=== PATIENT | female | born 1990 | race Caucasian/White ===

== ENCOUNTER 2017-05-14 07:02 | Emergency (ER) | payer SELFPAY ==
[2017-05-14 07:09] VITALS: TEMP 98.2; BMI 29.2
--- NOTE | 2017-05-14 07:45 | PDOC ---
History of Present Illness - General Chief Complaint: Pain Stated Complaint: PAIN IN UTERUS Time Seen by Provider: 05/14/17 07:34 History Source: Patient Exam Limitations: No Limitations - History of Present Illness Initial Comments: 05/14/17 08:10 CC: Acute onset of abdominal pain Patient is a 26 y.o. female with a PMH of Asthma who presents this [facility] c/o acute onset of abdominal pain. Patient states she noticed the pain yesterday evening around 10 p.m. Patient states the pain is cramping, intermittent ranging from 5/10-10/10. Patient denies any associated vomiting or fevers but does note nausea. Patient further denies any , dysuria, increased frequency/urgency. 05/14/17 09:00 Timing/Duration: 4-6 hours Severity: moderate Past History - Past Medical History Allergies/Adverse Reactions: Allergies Allergy/AdvReac Type Severity Reaction Status Date / Time No Known Allergies Allergy Verified 05/14/17 07:09 Home Medications: Ambulatory Orders NK [No Known Home Medication] 05/14/17 Asthma: Yes Suicide Attempt (Hx): No - Immunization History Immunization Up to Date: Yes - Psycho/Social/Smoking Cessation Hx Anxiety: No Suicidal Ideation: No Smoking Status: No Smoking History: Never smoked Have you smoked in the past 12 months: No Number of Cigarettes Smoked Daily: 0 Information on smoking cessation initiated: No Hx Alcohol Use: No Drug/Substance Use Hx: No Substance Use Type: None Review of Systems - Review of Systems Constitutional: No: Diaphoresis, Fever, Malaise, Night Sweats, Weakness HEENTM: No: Blurred Vision, Tinnitus, Hearing Loss, Throat Pain Respiratory: No: Cough, Orthopnea, Wheezing, Hemoptysis Cardiac (ROS): No: Chest Pain, Edema, Lightheadedness, Palpitations ABD/GI: Yes: Nausea, Abdominal cramping (Pain scale ranges from 5/10-10/10). No : Constipated, Diarrhea, Vomiting : No: Burning, Dysuria, Hematuria, Urgency Musculoskeletal: No: Back Pain, Joint Pain, Joint Swelling, Joint Stiffness Psychiatric: No: Anxiety, Depression All Other Systems: Reviewed and Negative *Physical Exam - Vital Signs Last Vital Signs Temp Pulse Resp BP Pulse Ox 98.2 F 89 18 128/85 99 05/14/17 07:07 05/14/17 07:07 05/14/17 07:07 05/14/17 07:07 05/14/17 07:07 - Physical Exam General Appearance: Yes: Nourished, Appropriately Dressed HEENT: positive: EOMI, TMs Normal Neck: positive: Trachea midline, Supple Respiratory/Chest: positive: Lungs Clear, Normal Breath Sounds Cardiovascular: positive: Regular Rhythm, Regular Rate, S1, S2 Gastrointestinal/Abdominal: positive: Normal Bowel Sounds, Soft, Other ((-) Suprapubic tenderness) Musculoskeletal: positive: Normal Inspection, Other ((-) CVA tenderness) ED Treatment Course - LABORATORY CBC & Chemistry Diagram: 05/14/17 08:09 05/14/17 08:09 Medical Decision Making - Medical Decision Making 05/14/17 09:00 Patient is a 26 y.o. female who presents c/o acute onset of cramping, intermittently 5/10-10/10 in severity RLQ abdominal pain without fever, dysuria or vomiting. Differential includes ovarian torsion vs. appendicitis vs. nephrolithiasis. Urine is negative and UA shows no hematuria, nitrite negative. CT Scan of Pelvis showed showed R ovarian cyst and U/S confirmed blood flow with no torsion. Patient was counseled on the importance of returning to the ED should she experience severe RLQ pain or systemic signs such as fever for evaluation of possible ovarian torsion. *DC/Admit/Observation/Transfer Diagnosis at time of Disposition: Ovarian cyst - Discharge Dispostion Disposition: HOME Admit: No - Patient Instructions Printed Discharge Instructions: DI for Ovarian Cyst - Post Discharge Activity Work/School Note: Back to Work
[2017-05-14 07:55] LABS: URINE APPEARANCE CLEAR; URINE BILIRUBIN NEGATIVE (NEGATIVE); URINE BLOOD NEGATIVE (NEGATIVE); URINE COLOR LTYELLOW; URINE GLUCOSE (UA) NEGATIVE (NEGATIVE); URINE KETONE NEGATIVE (NEGATIVE); URINE LEUK ESTERASE NEGATIVE (NEGATIVE); URINE NITRITE NEGATIVE (NEGATIVE); URINE PROTEIN NEGATIVE (NEGATIVE); URINE UROBILINOGEN NEGATIVE mg/dL (0.2-1.0)
[2017-05-14 08:37] LABS: MCH 28.6 pg (25.7-33.7); MEAN CELL VOLUME 86.8 fl (80-96); MEAN PLT VOLUME 8.2 fl (7.5-11.1); PLATELET COUNT 252 K/MM3 (134-434); RDW 14.9 % (11.6-15.6); WHITE BLOOD COUNT 6.2 K/mm3 (4.0-10.0)
[2017-05-14 09:00] LABS: ANION GAP 8 (8-16); CALCIUM 8.5 mg/dL (8.5-10.1); CO2 25 mmol/L (21-32); CREATININE 0.6 mg/dL (0.55-1.02); GLUCOSE,RANDOM 88 mg/dL (74-106)
--- NOTE | 2017-05-14 12:02 | PDOC ---
Attending Attestation - Resident Resident Name: Prem Weirica - ED Attending Attestation I have performed the following: I have examined & evaluated the patient, The case was reviewed & discussed with the resident, I agree w/resident's findings & plan, Exceptions are as noted - HPI HPI: 05/14/17 11:59 26 y.o. F h/o Asthma p/w acute onset abdominal pain that began at 10 pm Described as cramping, intermittent ranging from 5/10-10/10. No nausea or vomiting - Physicial Exam PE: 05/14/17 12:01 Lower abdominal tenderness No involuntary guarding or rebound - Medical Decision Making 05/14/17 12:01 Will do labs Will plan to do transvaginal US Will re assess 05/15/17 09:16 Laboratory Tests 05/14/17 07:34 Urine HCG, Qual Negative U/S and CT demonstrate involuting right ovarian cyst Will discharge to home Follow up with keno writer/runner and pmd
[2017-05-14 13:15] VITALS: BP 125/76; PULSE 16
== END 2017-05-14 13:08 | disposition home or self-care (01) ==
LOC: JER 07:02
DX: N83.201 Unspecified ovarian cyst, right side (principal)
CPT/HCPCS: 36415; 74177-TC; 76830-TC; 76856-TC; 80048; 81003; 84703; 85027; 99281-25

== ENCOUNTER 2018-05-13 22:22 | Emergency (ER) | payer BC ==
[2018-05-13 22:38] VITALS: BP 129/67; PULSE 82; TEMP 98.9; BMI 29.2
--- NOTE | 2018-05-13 23:02 | PDOC ---
History of Present Illness - General Chief Complaint: Hematuria Stated Complaint: POSSIBLE UTI Time Seen by Provider: 05/13/18 23:02 - History of Present Illness Initial Comments: 27 year old previously healthy female presenting with urinary burning and minor spotting since this AM. States that she has burning at the beginning of every urination and occasionally noticed small amounts of blood on the toilet paper. Denies any sexual trauma, unusually rough intercourse, etc. Denies fevers, chills, nausea, vomiting, diarrhea, back pain, or other symptoms. 05/14/18 00:28 Past History - Past Medical History Allergies/Adverse Reactions: Allergies Allergy/AdvReac Type Severity Reaction Status Date / Time No Known Allergies Allergy Verified 05/13/18 22:38 Home Medications: Ambulatory Orders Acetaminophen [Tylenol] 650 mg PO PRN 05/14/18 Cephalexin Monohydrate [Keflex -] 500 mg PO BID 7 Days #14 capsule 05/14/18 Asthma: Yes COPD: No - Reproductive History (#): 0 - Immunization History Immunization Up to Date: Yes - Suicide/Smoking/Psychosocial Hx Smoking Status: No Smoking History: Never smoked Have you smoked in the past 12 months: No Number of Cigarettes Smoked Daily: 0 Information on smoking cessation initiated: No Hx Alcohol Use: No Drug/Substance Use Hx: No Substance Use Type: None Review of Systems - Review of Systems Constitutional: No: Chills, Diaphoresis HEENTM: No: Blurred Vision, Tearing, Recent change in vision, Double Vision Respiratory: No: Cough, Orthopnea, Shortness of Breath Cardiac (ROS): No: Chest Pain, Edema, Chest Tightness ABD/GI: No: Diarrhea, Nausea, Vomiting : Yes: Burning, Dysuria, Hematuria. No: Discharge Integumentary: No: Bruising, Change in Color, Flushing, Lesions Neurological: No: Headache, Numbness, Paresthesia Hematologic/Lymphatic: No: Anemia, Blood Clots, Easy Bleeding *Physical Exam - Vital Signs Last Vital Signs Temp Pulse Resp BP Pulse Ox 98.9 F 82 17 129/67 100 05/13/18 22:35 05/13/18 22:35 05/13/18 22:35 05/13/18 22:35 05/13/18 22:35 - Physical Exam General Appearance: Yes: Nourished, Appropriately Dressed. No: Apparent Distress HEENT: positive: EOMI, EARLE, Normal ENT Inspection, Normal Voice Neck: positive: Trachea midline, Normal Thyroid, Supple. negative: Tender, Rigid Respiratory/Chest: positive: Lungs Clear, Normal Breath Sounds. negative: Chest Tender, Respiratory Distress, Accessory Muscle Use Cardiovascular: positive: Regular Rhythm, Regular Rate Gastrointestinal/Abdominal: positive: Normal Bowel Sounds, Flat, Soft. negative : Tender Lymphatic: negative: Adenopathy, Tenderness Musculoskeletal: positive: Normal Inspection. negative: Decreased Range of Motion Extremity: positive: Normal Capillary Refill, Normal Inspection, Normal Range of Motion. negative: Tender Neurologic: positive: Fully Oriented, Alert, Normal Mood/Affect, Normal Response , Motor Strength 5/5 Medical Decision Making - Medical Decision Making 27 year old female with light vaginal spotting and dysuria. Patient defferred vaginal exam and denies an pain outside of urination. Labs demonstrate UTI here. DC'd with abx, follow up, and return precautions. *DC/Admit/Observation/Transfer Diagnosis at time of Disposition: UTI (urinary tract infection) Qualifiers: Urinary tract infection type: acute cystitis Hematuria presence: with hematuria Qualified Code(s): N30.01 - Acute cystitis with hematuria - Discharge Dispostion Disposition: HOME Condition at time of disposition: Improved Decision to Admit order: No - Prescriptions Prescriptions: Cephalexin Monohydrate [Keflex -] 500 mg PO BID 7 Days #14 capsule - Referrals Referrals: [facility] [place] [Provider Group] - Patient Instructions Printed Discharge Instructions: DI for Urinary Tract Infection (UTI) Additional Instructions: You have a urinary tract infection. Please take your antibiotics BID as prescribed. Please follow up with your PCP within one week. If you do not have a PCP, please see our doctors at the clinic listed. Please return to the ED if you have worsening pain, nausea, vomiting, diarrhea, or are unable to take your medications for any reason. Please also return if roy ahve any new or worsening symptoms. - Post Discharge Activity
[2018-05-13 23:49] LABS: URINE APPEARANCE SLCLOUDY; URINE BILIRUBIN NEGATIVE (<2.0 mg/dL); URINE COLOR LTYELLOW; URINE GLUCOSE (UA) NEGATIVE (NEGATIVE); URINE KETONE NEGATIVE (NEGATIVE); URINE NITRITE NEGATIVE (NEGATIVE); URINE UROBILINOGEN NEGATIVE mg/dL (0.2-1.0)
[2018-05-13 23:55] LABS: HCG,QUALITATIVE URINE NEGATIVE
[2018-05-13 23:56] LABS: URINE LEUK ESTERASE 3+ (NEGATIVE); URINE PROTEIN 2+ (NEGATIVE)
[2018-05-13 23:58] LABS: EPI CELLS RARE /HPF (FEW); URINE MUCUS RARE
[2018-05-14] MEDS ORDERED: CEPHALEXIN MONOHYDRATE 500 MG CAPSULE (UD) PO ONE (00:25)
[2018-05-14] MEDS ORDERED: CEPHALEXIN MONOHYDRATE 500 MG CAPSULE (UD) ONE (00:31)
--- NOTE | 2018-05-14 01:05 | PDOC ---
Attending Attestation - Resident Resident Name: Andrea Arteaga - ED Attending Attestation I have performed the following: I have examined & evaluated the patient, The case was reviewed & discussed with the resident, I agree w/resident's findings & plan, Exceptions are as noted - HPI HPI: 05/14/18 02:01 27yo female with dysuria x 1 day. No flank pain. No fevers/chills. No n/v/d. - Physicial Exam PE: 05/14/18 02:03 Gen: aaox3, nad Heart: +s1s2 reg lungs: cta b/l abd: soft, nt/nd +bs ext: no c/c/e neuro: no focal deficits - Medical Decision Making 05/14/18 01:04 I, Dr. Sophia Mercer, DO, attest that this document has been prepared under my direction and personally reviewed by me in its entirety. I further attest, that it accurately reflects all work, treatment, procedures and medical decision -making performed by me. 05/14/18 01:04 a/p: 27yo female with dysuria x 1 day -no f/c -no flank pain -suspect UTI -will send UA, UCX, UCG 05/14/18 01:05 with with hemorrhagic cystitis - will start keflex discussed all reasons to return to the ED and need for follow up
== END 2018-05-14 00:38 | disposition home or self-care (01) ==
LOC: JER 22:22
DX: N30.01 Acute cystitis with hematuria (principal)
CPT/HCPCS: 81003; 81015; 84703; 87086; 87186; 99282-25

== ENCOUNTER 2020-11-16 21:23 | Emergency (ER) | payer BC ==
[2020-11-16 21:44] VITALS: BP 119/87; PULSE 96; TEMP 98.1; BMI 30.9
[2020-11-16 23:20] LABS: BASO % 0.7 % (0-2.0); EOS % 1.3 % (0-4.5); HEMATOCRIT 33.1 % (32.4-45.2); HEMOGLOBIN 11.1 GM/dL (10.7-15.3); LYMPH % 31.5 % (8-40); MCH 27.9 pg (25.7-33.7); MCHC 33.4 g/dl (32.0-36.0); MEAN CELL VOLUME 83.6 fl (80-96); MONO % 6.7 % (3.8-10.2); NEUT % 59.8 % (42.8-82.8); PLATELET COUNT 334 K/MM3 (134-434); RBC 3.96 M/mm3 (3.60-5.2); RDW 16.5 % (11.6-15.6); WHITE BLOOD COUNT 7.8 K/mm3 (4.0-10.0)
[2020-11-16 23:46] LABS: POTASSIUM 3.7 mmol/L (3.5-5.1)
[2020-11-16 23:48] LABS: ALBUMIN 3.2 g/dl (3.4-5.0); BLOOD UREA NITROGEN 9.2 mg/dL (7-18); CALCIUM 9.3 mg/dL (8.5-10.1)
[2020-11-16 23:52] LABS: CREATININE 0.5 mg/dL (0.55-1.3)
[2020-11-16 23:53] LABS: BILIRUBIN,TOTAL 0.3 mg/dL (0.2-1); TOT PROT 7.2 g/dl (6.4-8.2)
[2020-11-17 00:47] LABS: HCG,QUALITATIVE URINE Positive
[2020-11-17 01:26] LABS: URINE APPEARANCE CLEAR; URINE BILIRUBIN NEGATIVE (NEGATIVE); URINE COLOR YELLOW; URINE GLUCOSE (UA) NEGATIVE (NEGATIVE)
[2020-11-17 01:27] LABS: URINE KETONE NEGATIVE (NEGATIVE); URINE NITRITE NEGATIVE (NEGATIVE); URINE PROTEIN NEGATIVE (NEGATIVE); URINE UROBILINOGEN 0.2 mg/dL (0.2-1.0)
[2020-11-17 01:28] LABS: URINE LEUK ESTERASE NEGATIVE (NEGATIVE)
== END 2020-11-17 02:44 | disposition home or self-care (01) ==
LOC: JER 21:23
DX: O26.899 Other specified pregnancy related conditions, unspecified trimester (principal); B34.9 Viral infection, unspecified; Z3A.08 8 weeks gestation of pregnancy
CPT/HCPCS: 36415; 80053; 81003; 84703; 85025; 85379; 85730; 87077; 87086; 93005; 93010; 99284-25; C9803; U0003

== ENCOUNTER 2021-06-21 02:00 | Inpatient (IN) | payer BC ==
[2021-06-21] MEDS ORDERED: ELECTROLYTE-148 SOLN 1,000 ML IV SCH (02:15)
[2021-06-21] MEDS ORDERED: PROMETHAZINE HCL 25 MG/1 ML VIAL ONE (02:56)
[2021-06-21] MEDS ORDERED: BUTORPHANOL TARTRATE 2 MG/ML VIAL ONE (02:56)
[2021-06-21 03:02] LABS: BASO % 0.5 % (0-2.0); EOS % 1.1 % (0-4.5); HEMATOCRIT 33.5 % (32.4-45.2); HEMOGLOBIN 10.8 GM/dL (10.7-15.3); LYMPH % 32.4 % (8-40); MCH 25.1 pg (25.7-33.7); MCHC 32.1 g/dl (32.0-36.0); MEAN CELL VOLUME 78.2 fl (80-96); MEAN PLT VOLUME 8.4 fl (7.5-11.1); PLATELET COUNT 276 10^3/uL (134-434); RBC 4.28 M/mm3 (3.60-5.2); RDW 16.7 % (11.6-15.6)
[2021-06-21] MEDS ORDERED: BUTORPHANOL TARTRATE 2 MG/ML VIAL IVPB ONE (03:05)
[2021-06-21] MEDS ORDERED: PROMETHAZINE HCL 25 MG/1 ML VIAL IVPB ONE (03:05)
[2021-06-21 03:11] LABS: INR 0.9 (0.83-1.09); PROTHROMBIN TIME (PATIENT) 10.9 SEC (9.7-13.0)
[2021-06-21 03:13] LABS: ACTIVATED PTT 28.8 SECONDS (25.2-36.5)
[2021-06-21 03:33] LABS: CALCIUM 8.5 mg/dL (8.5-10.1)
[2021-06-21 03:37] LABS: CREATININE 0.7 mg/dL (0.55-1.3)
[2021-06-21 03:43] VITALS: BMI 30.2
[2021-06-21] MEDS ORDERED: OXYTOCIN 30 UNITS in 0.9% NS 30 UNIT/500 ML INFUS.BAG IVPB ONE (06:03)
[2021-06-21] MEDS ORDERED: OXYTOCIN 30 UNITS in 0.9% NS 30 UNIT/500 ML INFUS.BAG IVPB SCH (06:15)
[2021-06-21] MEDS ORDERED: OXYTOCIN 20 UNITS in 0.9% NS 20 UNIT/1,000 ML INFUS.BAG IV ONE ×2 (07:06→08:57)
[2021-06-21] MEDS ORDERED: WITCH HAZEL 50% (TUCKS) 40 PAD/JAR PAD TP PRN (07:24)
[2021-06-21] MEDS ORDERED: BISACODYL 10 MG SUPP.RECT RC PRN (07:24)
[2021-06-21] MEDS ORDERED: METHYLERGONOVINE MALEATE 0.2 MG/1 ML AMP IM PRN (07:24)
[2021-06-21] MEDS ORDERED: BENZOCAINE 20% 57 GM BOTTLE TP PRN (07:24)
[2021-06-21] MEDS ORDERED: BENZOCAINE 28 GM HEMORRHOIDAL OINTMENT TP PRN (07:24)
[2021-06-21] MEDS ORDERED: OXYTOCIN 20 UNITS in 0.9% NS 20 UNIT/1,000 ML INFUS.BAG IV SCH (07:30)
[2021-06-21] MEDS ORDERED: PRENATAL VITAMINS W/ FOLIC ACID TABLET (FP) PO ONE (09:12)
[2021-06-21] MEDS ORDERED: FERROUS SO4 325 MG TABLET (FP) ONE (09:12)
[2021-06-21] MEDS ORDERED: IBUPROFEN 600 MG TABLET (FP) PO ONE ×2 (09:13→12:47)
[2021-06-21] MEDS ORDERED: ACETAMINOPHEN 325 MG TABLET (FP) ONE ×2 (09:14→12:47)
[2021-06-21] MEDS: ACETAMINOPHEN 325 MG TABLET (FP) PO PRN ×3 (09:14→21:39)
[2021-06-21] MEDS: FERROUS SO4 325 MG TABLET (FP) PO SCH ×2 (09:18→21:38)
[2021-06-21] MEDS: PRENATAL VITAMINS W/ FOLIC ACID TABLET (FP) PO SCH (09:19)
[2021-06-21] MEDS: IBUPROFEN 600 MG TABLET (FP) PO PRN ×3 (09:19→21:40)
[2021-06-21 09:21] LABS: CORD BASE EXCESS -2.1 mmol/L (0-2); CORD HCO3 22.7 mmHg (20-29); CORD PCO2 39.4 mmHg (30-78); CORD pH 7.379 (7.14-7.44)
[2021-06-21 09:23] LABS: CORD BASE EXCESS -4.4 mmol/L (0-2); CORD HCO3 24.2 mmHg (20-29); CORD PCO2 58.3 mmHg (30-78); CORD pH 7.236 (7.14-7.44)
[2021-06-21] MEDS: SENNOSIDES/DOCUSATE COMBO (SENNA PLUS) TABLET (UD) PO PRN (21:39)
[2021-06-22] MEDS: IBUPROFEN 600 MG TABLET (FP) PO PRN ×4 (06:30→21:59)
[2021-06-22 07:25] LABS: BASO % 0.6 % (0-2.0); EOS % 1.7 % (0-4.5); HEMATOCRIT 30.9 % (32.4-45.2); HEMOGLOBIN 10.1 GM/dL (10.7-15.3); LYMPH % 34.5 % (8-40); MCH 26.1 pg (25.7-33.7); MCHC 32.8 g/dl (32.0-36.0); MEAN CELL VOLUME 79.5 fl (80-96); MEAN PLT VOLUME 8.6 fl (7.5-11.1); NEUT % 58.2 % (42.8-82.8); PLATELET COUNT 234 10^3/uL (134-434); RBC 3.89 M/mm3 (3.60-5.2); RDW 17.1 % (11.6-15.6); WHITE BLOOD COUNT 9.1 K/mm3 (4.0-10.0)
[2021-06-22] MEDS: PRENATAL VITAMINS W/ FOLIC ACID TABLET (FP) PO SCH (10:18)
[2021-06-22] MEDS: FERROUS SO4 325 MG TABLET (FP) PO SCH ×2 (10:19→21:07)
[2021-06-22] MEDS: SENNOSIDES/DOCUSATE COMBO (SENNA PLUS) TABLET (UD) PO PRN (21:07)
[2021-06-23] MEDS: IBUPROFEN 600 MG TABLET (FP) PO PRN (08:51)
[2021-06-23] MEDS: PRENATAL VITAMINS W/ FOLIC ACID TABLET (FP) PO SCH (10:31)
[2021-06-23] MEDS: FERROUS SO4 325 MG TABLET (FP) PO SCH (10:31)
[2021-06-23 12:43] VITALS: BP 120/80; PULSE 83; TEMP 98.1
== END 2021-06-23 12:10 | disposition home or self-care (01) | DRG 807 ==
LOC: JDEL 02:00 → JLDR 02:15 → J3W 14:13
PROVIDERS: ADMIT Obstetrics & Gynecology; ATTEND Obstetrics & Gynecology
PROC: 10E0XZZ Delivery of Products of Conception, External Approach (ICD-10-PCS; principal; 2021-06-21)
DX: O80 Encounter for full-term uncomplicated delivery (principal); Z37.0 Single live birth; Z3A.40 40 weeks gestation of pregnancy; Z86.19 Personal history of other infectious and parasitic diseases; Z87.42 Personal history of other diseases of the female genital tract
CPT/HCPCS: 36415; 36600; 59409; 80048; 82803; 85025; 85610; 85730; 86780; 86850; 86900; 86901; C9803; U0003; U0005